=== PATIENT | male | born 1960 | race Caucasian/White ===

== ENCOUNTER 2020-08-13 05:16 | Emergency (ER) | payer MEDICAID ==
[~2020-08-13] VITALS: Ht 175.3 cm; Wt 123.0 kg
[2020-08-13 06:41] LABS: CHLORIDE 104 mEq/L (98-107); HEMATOCRIT. 49.7 % (42.0-52.0); HEMOGLOBIN. 16.8 g/dL (14.0-18.0); MEAN CORPUSCULAR HEMOGLOBIN 32.3 pg (28.0-32.0); MEAN CORPUSCULAR VOLUME 95.4 fL (80.0-94.0); RED BLOOD CELL COUNT 5.21 mill/uL (4.7-6.1); RED CELL DISTRIBUTION WIDTH 14.4 % (11.6-14.6)
[2020-08-13 07:47] LABS: PLATELET ESTIMATE NORMAL
[2020-08-13 07:48] LABS: PLATELET 358 x1000/uL (130-400)
[2020-08-13 09:04] LABS: INR 1.7; PROTHROMBIN TIME 17.2 sec (9.6-11.0)
[2020-08-13] MEDS ORDERED: HYDROCODONE/ACETAMINOPHEN 5/325MG TABLET PO ONE (09:30)
[2020-08-13] MEDS ORDERED: KETOROLAC 30MG/ML VIAL IV ONE (09:30)
[2020-08-13] MEDS ORDERED: ONDANSETRON 4MG ODT PO ONE (10:00)
[2020-08-13] MEDS ORDERED: IOHEXOL-350 100 ML BOTTLE ONE (10:28)
[2020-08-13] MEDS ORDERED: WARFARIN SODIUM 10MG TABLET PO ONE (11:30)
[2020-08-13 11:47] VITALS: BP 143/92
== END 2020-08-13 11:55 | disposition home or self-care (01) ==
LOC: ER 05:16
DX: R07.89 Other chest pain (principal); M25.562 Pain in left knee; M25.512 Pain in left shoulder; F15.10 Other stimulant abuse, uncomplicated
CPT/HCPCS: 36415; 71045; 71275; 80053; 83880; 84484; 85025; 85610; 93005; 93971; 96374; 99285; J1885; Q9967